=== PATIENT | female | born 1960 | race Two or more races ===

== ENCOUNTER 2017-09-17 11:22 | Emergency (ER) | payer BC ==
[~2017-09-17] VITALS: Ht 157.5 cm; Wt 59.7 kg
[2017-09-17 12:23] LABS: MICROSCOPIC AUTO
[2017-09-17 12:24] LABS: CULTURE INDICATED? YES
[2017-09-17] MEDS ORDERED: LIDOCAINE-MPF 1%, 5ML INFIL ONE (12:30)
[2017-09-17 12:31] LABS: BASOPHILS # (AUTO) 0.02 x10^3/uL (0-0.1); BASOPHILS % (AUTO) 0 % (0-1); EOSINOPHILS # (AUTO) 0.07 x10^3/uL (0-0.4); EOSINOPHILS % (AUTO) 0 % (1-7); LYMPHOCYTES # (AUTO) 1.72 x10^3/uL (1-3.4); LYMPHOCYTES % (AUTO) 10 % (22-44); MD NO; MEAN CORPUSCULAR HEMOGLOBIN 31.8 pg (27.0-34.8); MEAN CORPUSCULAR HGB CONC 34.1 g/dL (32.4-35.8); MEAN CORPUSCULAR VOLUME 93.1 fL (80-100); MEAN PLATELET VOLUME 7.7 fL (7.4-10.4); MONOCYTES # (AUTO) 0.39 x10^3/uL (0.2-0.8); MONOCYTES % (AUTO) 2 % (2-9); NEUTROPHILS # (AUTO) 15.29 x10^3/uL (1.8-6.8); NEUTROPHILS % (AUTO) 88 % (42-75); PLATELET COUNT 303 x10^3/uL (130-400); RED BLOOD COUNT 4.31 x10^6/uL (3.82-5.3); RED CELL DISTRIBUTION WIDTH 11.9 % (9.6-15.2)
[2017-09-17 12:45] LABS: ALBUMIN 3.8 g/dL (3.4-5.0); ANION GAP 6 mmol/L (5-15); CALCIUM 9.3 mg/dL (8.5-10.1); CHLORIDE 107 mmol/L (98-107); CREATININE 0.79 mg/dL (0.55-1.02)
[2017-09-17 12:49] LABS: TROPONIN I < 0.015 ng/mL (0.000-0.045)
[2017-09-17] MEDS ORDERED: METO-99 PO (13:13)
[2017-09-17] MEDS ORDERED: LISI-167 PO (13:13)
[2017-09-17 13:18] VITALS: BP 139/83
[2017-09-17] MEDS ORDERED: DIPHENHYDRAMINE 50 MG/ML, 1ML ONE (13:32)
[2017-09-17] MEDS ORDERED: PROCHLORPERAZINE 5 MG/ML, 2ML ONE (13:32)
[2017-09-17] MEDS ORDERED: KETOROLAC 30 MG/1 ML ONE (13:32)
[2017-09-17] MEDS ORDERED: OMNIPAQUE 350 MG/ML, 100ML BOTTLE ONE (13:43)
[2017-09-17] MEDS ORDERED: CLINDAMYCIN PMX 600MG/50ML 50 ML IV ONE (14:00)
[2017-09-17] MEDS ORDERED: CLINDAMYCIN PMX 600MG/50ML 50 ML ONE (14:22)
== END 2017-09-17 15:33 | disposition home or self-care (01) ==
LOC: ED 12:52
DX: R07.89 Other chest pain (principal); L02.416 Cutaneous abscess of left lower limb; I10 Essential (primary) hypertension
CPT/HCPCS: 10060; 36415; 71045; 71275; 80048; 81001; 82040; 84484; 85025; 85379; 87086; 93005; 96365; 96366; 99285; Q9967; 87147